=== PATIENT | male | born 1965 | race Caucasian/White ===

== ENCOUNTER 2024-03-20 17:00 | Outpatient (RCR) | payer OTHER, SELFPAY ==
--- NOTE | 2024-03-18 10:29 | HMH.PTOPEV ---
PT Outpatient Evaluation Rehab PT Outpatient Evaluation Start: 03/18/24 09:01 Freq: Status: Active Protocol: Document 03/18/24 10:05 LUISSHANNAN (Rec: 03/18/24 10:29 MAXIMILIAN [id number]) E-signed By Valentín Funk, PT Outpatient Therapy Subjective History Subjective History Patient is a 59 yom who presents to [facility] outpatient Physical therapy with complaints of bilateral heel pain. He reports that he has dealt with gout in his toes for years, and approximately 2 -3 months ago he began to have heel pain with both feet but his left foot is much worse than the right. He reports that he assumed it was also gout but it seemed worse and would not subside. He reports that the pain is isolated to just in front of the heel on the bottom of the foot. He reports that the pain is worst when taking his first step in the morning or after sitting for a longer period. He reports that he has had 3-4 steroid injections and they help temporarily but then provide no relief after a few days. He reports he has a lot of difficulty standing, walking and stairs. New diagnosis of cancer in past 12 No months? Chief Complaint Pain Symptom Type Sharp Symptoms Relieved By Ice,Prescription Meds Symptoms Aggravated By Standing,Walking Prior Functional Limitations None Current Functional Limitations Walking,Stairs,Balance Symptom Description Constant and Continuous Level of pain today (0-10) 9 Pain scale - at its best (0-10) 7 Pain scale - at its worst (0-10) 10 Ankle/Foot Eval Gait Observation General Gait Pattern Observation Antalgic Gait,Wide Based Gait, Decrease Weight Bear (L) Assistive Device Ambulation Assistive Device Straight Cane Palpation Tenderness bilateral Ankle/Foot Palpation Findings Tenderness Ankle/Foot Palpation Overall Comment TTP to Plantar fascia insertion L: 3/4 R 2/4 ATF TTP negative PTF TTP negative CF TTP negative Deltoid ligament TTP negative ROM Ankle/Foot Dorsiflexion w/Knee Extended 0 Active Range Motion (degrees) Ankle/Foot Dorsiflexion w/Knee Extended 2 Passive Range (degrees) Ankle/Foot Plantar Flexion Active Range 35 of Motion (degrees) Ankle/Foot Plantar Flexion Passive Range 35 of Motion (degrees) Ankle/Foot ROM Limitations Soft Tissue Tightness Great Toe Metatarsophalangeal Extension 9 Passive Range Motion (degrees) Great Toe Metatarsophalangeal Flexion 6 Active Range of Motion (degrees) MMT Ankle Dorsiflexion Strength Grade 4 Good Ankle Plantarflexion Strength Grade 4 Good Special Tests Ankle Anterior Drawer Test Negative Left,Negative Right Ankle Eversion Test Negative Left,Negative Right Talar Tilt Test Negative Left,Negative Right Ankle Inversion (supination) Test Negative Left,Negative Right Lower Extremity Functional Index Activities Today, do you or would you have any difficulty at all with: a.Any of your usual work, housework or Quite a bit of difficulty school activities b. Your usual hobbies, recreational or Quite a bit of difficulty sporting activities c. Getting into or out of the bath A little bit of difficulty d. Walking between rooms Moderate difficulty e. Putting on your shoes or socks Quite a bit of difficulty f. Squatting Moderate difficulty g. Lifting an object, like a bag of No difficulty groceries from the floor h. Performing light activities around Moderate difficulty your home i. Performing heavy activities around Moderate difficulty your home j. Getting into or out of a car Moderate difficulty k. Walking 2 blocks Moderate difficulty l. Walking a mile Quite a bit of difficulty m. Going up or down 10 stairs (about 1 Moderate difficulty flight of stairs) n. Standing for 1 hour A little bit of difficulty o. Sitting for 1 hour Moderate difficulty p. Running on even ground Extreme difficulty or unable to perform activity q. Running on uneven ground Extreme difficulty or unable to perform activity r. Making sharp turns while running fast Extreme difficulty or unable to perform activity s. Hopping Extreme difficulty or unable to perform activity t. Rolling over in bed No difficulty LEFI Score Lower Extremity Functional Index Score 34 Miscellaneous Dx PT Eval Objective Objective Windlass Test: - bilaterally Sensation intact bilaterally Pronated Feet Bilaterally Outpatient Therapy Assessment Impairments Problems/Impairmments Palpation Tenderness,Impaired Range of Motion,Impaired Strength,Impaired Walking, Impaired Standing,Subjective C /O Pain Prognosis Rehab Potential Fair Comment Pt presents with pain and tenderness at the plantar fascia insertion bilaterally. Pt also presents with moderately tight heel cords bilaterally. These signs and symptoms are consistent with plantar fasciitis bilaterally. Skilled PT is indicated for this pt to promote a return to his PLOF and to address his current impairments. Clinical Impression Consistent with Diagnosis Yes Short Term Goals Number of Weeks 4 Decreased Palpation Tenderness Yes: 1/ to plantar fascia Increase Range of Motion Yes: DF and Great Toe Extension to 10 degrees Increase Strength Yes: 5/5 Improve Gait Pattern with Assistive Yes: Normalized Gait Pattern Device with SP Cane Increase Ability to Stand Yes: 30 minutes 2/10 pain Improve LEFI Score Yes: to 44 Decrease Subjective C/O Pain Yes: 6/10 at worst Patient to be Ind w/ HEP Yes Jail Goals Number of Weeks 8 Decreased Palpation Tenderness Yes: 0/4 to plantar fascia Increase Range of Motion Yes: DF and Great Toe Extension to 20 Degrees Improve Gait Pattern without Assistive Yes: Normalized Gait with No Device AD Increase Ability to Stand Yes: 1 hour 2/10 pain Improve LEFI Score Yes: to 54 Decrease Subjective C/O Pain Yes: 4/1o at worst Patient to be Ind w/ Advanced HEP Yes Outpatient Therapy Plan of Care Treatment Plan May Include Therapeutic Exercise Including Home Yes Exercise Program Manual Therapy Techniques Yes Neuromuscular Re-education Yes Therapeutic Activities to Return to Yes Previous Functional/Work Level Gait Training Yes ADL/Self Care Education Yes Mechanical Traction Yes Dry Needling Yes Thermal Modalities Yes Electrical Stimulation Yes Ultrasound/Phonophoresis Yes Orthotics/Bracing/Splinting Yes Massage Yes Manual Lymphatic Drainage Yes Eval/Re-Eval Yes Frequency Times per week 2-3 Duration Number of Weeks 8 Addendums This patient is a candidate for social No or vocational rehab? Patient/Guardian verbally acknowledges Yes understanding of treatment program and consents to further treatment? Patient/Guardian verbally acknowledges Yes understanding of diagnosis, prognosis and goals for treatment? Eval Complexity PT Charges 95757 - Moderate Complexity Shoulder/Elbow Eval Shoulder Objective Measurements Elbow Objective Measurements PHYSICIAN CERTIFICATION: I certify the specified therapy services for Aris Glynn are required, authorized, and reviewed every 30 days.
== END 2024-03-20 23:59 | disposition home or self-care (01) ==
LOC: PT 17:00
PROVIDERS: PCP Family Medicine; Visit Provider Nurse Practitioner
DX: M72.2 Plantar fascial fibromatosis (principal)
CPT/HCPCS: 97010; 97140; 97163; 97530

== ENCOUNTER 2024-04-04 16:26 | Outpatient (CLI) | payer OTHER, SELFPAY ==
[2024-04-04 18:19] LABS: Basophils # 0.1 K/mm3 (0-0.2); Basophils % 0.6 % (0.1-2.0); Eosinophils % 0.2 % (0.1-12.0); Hematocrit 40.1 % (42.0-52.0); Hemoglobin 13.8 g/dL (14.1-18.0); Lymphocytes % 7.3 % (10-50); Mean Corpuscular HGB Conc 34.5 g/dL (31.8-35.4); Mean Corpuscular Hemoglobin 31.8 pg (27.0-31.2); Mean Corpuscular Volume 92.3 fl (80-94); Mean Platelet Volume 8.9 fl (7.4-10.4); Monocytes # 0.7 K/mm3 (0.1-1.0); Monocytes % 5.3 % (1.7-9.3); Neutrophils # 11.8 K/mm3 (1.8-7.8); Neutrophils % 86.6 % (37.0-80.0); Platelet Count 196 K/mm3 (142-424); Red Blood Count 4.34 M/mm3 (4.60-6.20); Red Cell Distribution Width 16.6 % (11.5-17.5); White Blood Count 13.7 K/mm3 (4.8-10.8)
[2024-04-04 18:21] LABS: MANUAL DIFFERENTIAL MANUAL DIFFERENTIAL (MANUAL DIFF)
[2024-04-04 18:31] LABS: Alanine Aminotransferase 40 U/L (12-78); Albumin Level 4.4 g/dl (3.5-5.0); Albumin/Globulin Ratio 1.8 (1.1-1.8); Alkaline Phosphatase 87 U/L (38-126); Anion Gap 14.8 mEq/L (5-15); Aspartate Amino Transferase 32 U/L (17-59); Bilirubin,Total 0.5 mg/dl (0.2-1.3); Blood Urea Nitrogen 61 mg/dl (9-20); Calcium 9.1 mg/dl (8.4-10.2); Carbon Dioxide 27 mmol/L (22.0-30.0); Chloride 101 mmol/L (98-107); Chol/HDL Ratio 2.4 (1-3.5); Cholesterol 200 mg/dl (140-200); Estimated Glomerular Filt Rate 31 ml/min (>60); GFR (African American) 37 ML/MIN (>60); Globulin 2.4 g/dL (1.3-3.2); Glucose 191 mg/dl (74-100); HDL Cholesterol 84 mg/dl (40-60); Potassium 4.8 mmoL/L (3.5-5.1); Sodium 138 mmol/L (136-145); Total Protein,Serum 6.8 g/dl (6.3-8.2); Triglycerides 130 mg/dl (30-150); VLDL Cholesterol 26 mg/dL (0-40)
[2024-04-04 18:42] LABS: Direct LDL Cholesterol 102.48 mg/dL (100-129)
[2024-04-04 19:40] LABS: Lymphocytes % 10 % (10-50); Monocytes % 4 % (2-9); Neutrophils % 86 % (42-76); Total Cells Counted 100
[2024-04-04 19:41] LABS: Hypochromasia 1+; Platelet Estimate Normal
== END 2024-04-04 23:59 | disposition home or self-care (01) ==
LOC: LAB.DROPOF 04-05 11:08
PROVIDERS: PCP Family Medicine; Visit Provider Family Medicine
DX: M79.672 Pain in left foot (principal)
CPT/HCPCS: 80053; 80061; 85007; 85025; 85027

== ENCOUNTER 2024-04-05 13:27 | Outpatient (CLI) | payer OTHER, SELFPAY ==
--- NOTE | 2024-04-05 13:32 | XR_ITS ---
FINAL REPORT CLINICAL HISTORY: Foot Pain FINDINGS: LEFT FOOT Three views of the left foot demonstrate no acute fracture or dislocation. There are mild to moderate degenerative changes. Calcaneal spurs are noted. There are erosions of the distal aspect of the first proximal phalanx and first distal phalanx. There is medial soft tissue swelling. IMPRESSION: No acute bony abnormality. Bony erosions and soft tissue swelling. Gout not excluded. Reviewed, Interpreted and Dictated by Jorge Baugh III, MD Transcribed by Mary New Authenticated and [facility]
--- NOTE | 2024-04-05 13:32 | XR_ITS ---
FINAL REPORT CLINICAL HISTORY: Foot Pain FINDINGS: RIGHT FOOT 3 views of the right foot were obtained. There is no acute fracture or dislocation. There are moderate degenerative changes. Calcification is seen at the distal Achilles tendon. There are calcaneal spurs. There are erosions of the medial head of the first metatarsal and medial first proximal phalanx. There is focal soft tissue swelling or soft tissue nodules at the medial aspect of the first MTP joint. Gout not excluded. IMPRESSION: No acute bony abnormality. Bony erosions with soft tissue swelling. Gout not excluded. Reviewed, Interpreted and Dictated by Jorge Baugh III, MD Transcribed by Mary New Authenticated and [facility] [place] [place]
== END 2024-04-05 23:59 | disposition home or self-care (01) ==
LOC: RAD 13:28
PROVIDERS: PCP Family Medicine; Visit Provider Podiatrist
DX: M79.671 Pain in right foot (principal); M79.672 Pain in left foot
CPT/HCPCS: 73630

== ENCOUNTER 2024-04-11 12:52 | Outpatient (CLI) | payer OTHER, SELFPAY ==
--- NOTE | 2024-04-11 | CA_ITS ---
FINAL REPORT CLINICAL HISTORY: Lena discovered DM, Left foot ulcer with edema, CAD-multiple FL's COMPARISON: None FINDINGS: Right lower extremity, flow velocities (cm per second): Common femoral artery: 175 Proximal SFA: 169 Distal SFA: 113 Popliteal: 116 Anterior tibial artery: 122 Posterior tibial artery: 80 Left lower extremity, flow velocities (cm per second): Common femoral artery: 180 Proximal SFA: 127 Distal SFA: 115 Popliteal: 120 Anterior tibial artery: 109 Posterior tibial artery: 70 Waveforms are noted to be biphasic and triphasic. No levels of stenosis or occlusion are identified. Mild diffuse plaque disease is present. IMPRESSION: No Doppler abnormalities to indicate significant obstructive peripheral vascular disease. Reviewed, Interpreted and Dictated by Connie Ulloa MD Transcribed by Georgina Ramirez Authenticated and [facility]
--- NOTE | 2024-04-11 | CA_ITS ---
FINAL REPORT CLINICAL HISTORY: Lymph edema, obesity, HTN, DM, Left foot ulcer COMPARISON: None FINDINGS: Multiple transverse and longitudinal scans were performed of the femoral popliteal deep venous system, with augmentation and compression maneuvers. Normal phasic flow was noted in the visualized deep venous system. No intraluminal increased echogenicity is noted to suggest thrombus. There is normal compression and augmentation of the venous structures. No abnormal venous collaterals are seen. IMPRESSION: No evidence of deep venous thrombosis of the bilateral lower extremities. Reviewed, Interpreted and Dictated by Connie Ulloa MD Transcribed by Georgina Ramirez Authenticated and [facility]
== END 2024-04-11 23:59 | disposition home or self-care (01) ==
LOC: RT 12:54
PROVIDERS: PCP Family Medicine; Visit Provider Family Medicine
DX: R60.0 Localized edema (principal); I73.9 Peripheral vascular disease, unspecified
CPT/HCPCS: 93925; 93970

== ENCOUNTER 2024-04-22 14:00 | Outpatient (RCR) | payer OTHER, SELFPAY ==
--- NOTE | 2024-04-10 16:55 | HMH.PTOPWND ---
Rehab Outpt Wound Evaluation Rehab OP Wound Evaluation Start: 04/10/24 16:40 Freq: Status: Active Protocol: Document 04/10/24 16:41 GUSTAVO (Rec: 04/10/24 16:54 PHORDARYN [id number]) E-signed By Matt Diaz, PT Subjective/History History History This is the initial PT wound care eval for Aris Glynn, 59 yowf who presents with c/o B heel wounds present for several weeks with insidious onset of symptoms. He reports increased pain in B feet, especially around his wounds. He reports he is also being treated by podiatry for these wounds. He has PMH significant for: Diabetes Chronic kidney disease Elevated glucose level Lower extremity edema Venous stasis Peripheral vascular disease Acute kidney injury Coronary disease Plantar fasciitis of left foot High blood pressure Kidney failure Heart attack Gout L TKA Subjective Subjective Currently pain in B feet is 8/ 10, described as burning, TTP is 3/4 in the dimitri-wound skin. 10g, 5.07 level, monofilament testing shows full sensation to B feet at this time. Moderate blanchable erythema noted throughout B feet. 2+ pitting edema to B lower legs with considerable hemosiderin staining noted. New diagnosis of cancer in past 12 No months? Wound Eval Wound Left Lower Heel Wound Type Pressure Ulcer Is This a Chronic Wound Yes Wound Length (cm) 0.6 Wound Width (cm) 0.5 Wound Depth (cm) 0.2 Wound Bed Appearance Beefy Red,Yellow Percentage Granulated (%) 95 Wound Margins Description Well Defined Surrounding Tissue Appearance Bright Red Edema Type Pitting Edema Degree 2+ Query Text:1+ Trace, Barely Detectable, Rebound 15-30 seconds 2+ Moderate, Slight Indentation, Rebound 10-20 seconds 3+ Deep, Deeper Indentation, Rebound > 30 seconds 4+ Very Deep, Rebound > 60 seconds Drainage Description Serous Drainage Amount Scant Wound Topical Solution/Irrigant Saline Irrigant Packing Type Collagen Primary Dressing Composite Comment polymem 2x2 Wound Debridement Method Sharps,Forceps,Gauze, Mechanical Wound Debridement Amount of Tissue Minimal Removed Dressing Change Patient Tolerance Tolerated Well Right Lower Heel Wound Type Diabetic Foot Ulcer Is This a Chronic Wound Yes Wound Length (cm) 0.7 Wound Width (cm) 0.2 Wound Depth (cm) 0.1 Wound Bed Appearance Waggaman Wound Margins Description Well Defined Surrounding Tissue Appearance [place] Edema Type Pitting Edema Degree 2+ Query Text:1+ Trace, Barely Detectable, Rebound 15-30 seconds 2+ Moderate, Slight Indentation, Rebound 10-20 seconds 3+ Deep, Deeper Indentation, Rebound > 30 seconds 4+ Very Deep, Rebound > 60 seconds Drainage Amount None Wound Topical Solution/Irrigant Saline Irrigant Primary Dressing Composite Comment polymem 2x2 Dressing Change Patient Tolerance Tolerated Well Franco-Lepe Wound Assessment Tool Assessment Wound size 1=Length x Width <4 sq cm Wound depth 3=Full thickness skin loss involving damage or necrosis of Wound edges 3=Well-defined, not attached to wound base Wound undermining 1=None present Necrotic tissue type 2=White/chaney non-viable tissue &/or non-adherent yellow slough Necrotic tissue amount 2=<25% of wound bed covered Exudate type 3=Serosanguineous: thin, watery, pale red/pink Exudate amount 3=Small Skin color surrounding wound 2=Bright red &/or blanches to touch Peripheral tissue edema 2=Non-pitting edema extends <4 cm around wound Peripheral tissue induration 1=None present Granulation tissue 2=Bright, beefy red;75% to 100 % of wound filled &/or tissue overgrowth Epithelialization 5= < 25% wound covered Wound assessment total score 30 Wound Problems/Impairments Impairments Problems/Impairmments Palpation Tenderness,Impaired Walking,Impaired Standing, Impaired Shower/Bathing, Impaired Stair Climbing, Increased Edema,Lymphedema Present,Wound Care Needs, Subjective C/O Pain,Impaired Self Care/Self Management Prognosis Rehab Potential Good Comment Skilled therapy is indicated to reduce overall wound surface area and aid pt return to PLOF. 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 Goals Number of Weeks 8 Decreased Palpation Tenderness Yes: 1/ B heel Decrease Wound Area Yes: by 75% Decrease Subjective C/O Pain Yes: 08/01 B foot Patient to be Ind w/ Home Wound Care/ Yes Dressing Changes Outpatient Therapy Plan of Care Treatment Plan May Include Therapeutic Exercise Including Home Yes Exercise Program Manual Therapy Techniques Yes Neuromuscular Re-education Yes Therapeutic Activities to Return to Yes Previous Functional/Work Level ADL/Self Care Education Yes Ultrasound/Phonophoresis Yes Orthotics/Bracing/Splinting Yes Manual Lymphatic Drainage Yes Wound Care Yes Eval/Re-Eval Yes Frequency Times per week 1-2 Duration Number of Weeks 8 Addendums This patient is a candidate for social No or vocational rehab? Patient/Guardian verbally acknowledges Yes understanding of treatment program and consents to further treatment? Patient/Guardian verbally acknowledges Yes understanding of diagnosis, prognosis and goals for treatment? Eval Complexity PT Charges 85591 - High Complexity PHYSICIAN CERTIFICATION: I certify the specified therapy services for Aris Glynn are required, authorized, and reviewed every 30 days.
== END 2024-04-22 23:59 | disposition home or self-care (01) ==
LOC: PT 14:00
PROVIDERS: PCP Family Medicine; Visit Provider Family Medicine
DX: M79.672 Pain in left foot (principal); M72.2 Plantar fascial fibromatosis
CPT/HCPCS: 97163; 97597

== ENCOUNTER 2024-05-07 15:05 | Outpatient (CLI) | payer OTHER, SELFPAY ==
[2024-05-07 19:01] LABS: Uric Acid 14.5 mg/dl (3.5-8.5)
[2024-05-07 19:10] LABS: Erythrocyte Sedimentation Rate 34 mm/hr (0-20)
[2024-05-08 14:31] LABS: Alanine Aminotransferase 56 U/L (12-78); Albumin Level 4.2 g/dl (3.5-5.0); Albumin/Globulin Ratio 1.8 (1.1-1.8); Alkaline Phosphatase 105 U/L (38-126); Anion Gap 18.1 mEq/L (5-15); Aspartate Amino Transferase 47 U/L (17-59); Bilirubin,Total 0.6 mg/dl (0.2-1.3); Blood Urea Nitrogen 60 mg/dl (9-20); Calcium 9.1 mg/dl (8.4-10.2); Carbon Dioxide 25 mmol/L (22.0-30.0); Chloride 96 mmol/L (98-107); Estimated Glomerular Filt Rate 27 ml/min (>60); GFR (African American) 32 ML/MIN (>60); Globulin 2.4 g/dL (1.3-3.2); Glucose 169 mg/dl (74-100); Potassium 4.1 mmoL/L (3.5-5.1); Sodium 135 mmol/L (136-145); Total Protein,Serum 6.6 g/dl (6.3-8.2)
[2024-05-09 07:12] LABS: RA Latex Turbid. 10.5 IU/mL (<14.0)
[2024-05-09 15:19] LABS: Antinuclear Antibodies, IFA Negative (.)
== END 2024-05-07 23:59 | disposition home or self-care (01) ==
LOC: LAB.DROPOF 05-08 14:57
PROVIDERS: PCP Family Medicine; Visit Provider Family Medicine
DX: I87.8 Other specified disorders of veins (principal); M19.90 Unspecified osteoarthritis, unspecified site; R60.0 Localized edema
CPT/HCPCS: 80053; 84550; 85651; 86038; 86431

== ENCOUNTER 2024-05-24 14:00 | Outpatient (RCR) | payer OTHER, SELFPAY ==
--- NOTE | 2024-05-10 16:34 | HMH.RHREAS ---
Rehab Reassessment Rehab OP Re-assessment Start: 05/10/24 16:18 Freq: Status: Active Protocol: Document 05/10/24 16:28 GUSTAVO (Rec: 05/10/24 16:34 PHORNE [id number]) E-signed By Matt Diaz, PT Rehab Re-assessment Subjective Subjective Pt continues to reports significant tenderness with even light touch to B heels. He also reports new onset B lower leg wounds. They started as blisters and then opened up and now they are sores. Objective Objective Notes L heel wound: L= 0.4 cm, W= 0. 4 cm, D= 0.1 cm. R heel wound: L= 0.4 cm, W= 0. 2 cm, D= 0.1 cm. TTP: B heel wounds 3/4. Sharp, excisional debridement performed to remove hyperkeratotic rim surrounding wounds. Assessment Progress Assessment Slower Than Expected Assessment Notes B heel wounds remain somewhat small, but healing is slower than expected. Perfusion in the area of both heel wounds appears excellent. 3/4 TTP to B heel wounds. 2+ pitting edema remains in B gaiter area . B lower leg wounds are dry, without drainage, and currently scabbed. Skilled therapy services remains necessary to reduce healing time and aid pt return to PLOF . Patient goals met ST/3 LT/3 Plan Plan Continue per initial POC. Frequency of Therapy 1 x/wk Duration of therapy 4 wks Time and Billing Re-Eval Time 11 Re-Eval Billing Units 1 Charge for PT reassessment? Yes PHYSICIAN CERTIFICATION: I certify the specified therapy services for Aris Glynn are required, authorized, and reviewed every 30 days.
== END 2024-05-24 23:59 | disposition home or self-care (01) ==
LOC: PT 14:00
PROVIDERS: PCP Family Medicine; Visit Provider Family Medicine
DX: M79.672 Pain in left foot (principal); M72.2 Plantar fascial fibromatosis
CPT/HCPCS: 97164; 97597